=== PATIENT | female | born 1970 | race Caucasian/White ===

== ENCOUNTER 2016-11-12 16:38 | Emergency (ER) | payer BC ==
[~2016-11-12] VITALS: Ht 172.7 cm; Wt 113.5 kg
[2016-11-12 16:40] VITALS: BP 133/72; PULSE 64; RESP 20; TEMP 98.6; O2SAT 97
--- NOTE | 2016-11-12 16:45 | PD ---
Physical Exam Time Seen by Provider: 16:41 Narrative 46 y/o female presents for evaluation for vomiting, headache, dizziness, brief peripheral vision loss. Seen at pcp office and sent here for further evaluation. Had a chiropracor adjustment today and symptoms are worse. vss Seen at triage desk. Awaiting bed placement. [facility] Medical Record Reviewed: Yes Supervised Visit with HASMUKH: Germain Zuleta November 12, 2016 16:45
[2016-11-12] MEDS ORDERED: SODIUM CHLOR 0.9% 1000 ML INJ 1,000 ML IV ONE (17:52)
[2016-11-12] MEDS ORDERED: diphenhydrAMINE HCL 50 MG/ML VIAL IV PUSH ONE (18:00)
[2016-11-12] MEDS ORDERED: MECLIZINE HCL 25 MG TAB PO ONE (18:00)
[2016-11-12] MEDS ORDERED: SODIUM CHLORIDE 0.9% FLUSH 10 ML FLUSH IVF PRN (18:00)
[2016-11-12] MEDS ORDERED: PROCHLORPERAZINE INJ 10 MG/2 ML VIAL IV PUSH ONE (18:00)
--- NOTE | 2016-11-12 18:07 | PD ---
HPI Chief Complaint: Dizziness Time Seen by Provider: 18:00 Travel History International Travel<30 days: No Contact w/Intl Traveler<30days: No Traveled to known affect area: No History of Present Illness HPI 46-year-old female presents to the emergency department for neurologic evaluation. Patient stated that she started with a stomach virus on night around 9 PM. She states she was vomiting and had diarrhea. At that time , she started with a left occipital headache that gradually worsened. She states that her symptoms started to get better around midnight. Her vomiting had ceased. However, her diarrhea persisted into Saturday. She states that she has had a headache since . She states that this morning she went saw her chiropractor and hopes to have her neck readjusted, hoping to relieve her headache. The patient states she has had headaches in the past, but not similar to her current headache. She states that in the past, her chiropractor had resolved her headaches. Her last headache was 6 months ago. She states that her chiropractor adjusted her neck and she began with dizziness as soon as he was done. She states this started at 9:30 this morning. She states the dizziness is worse with movement. It is relieved with lying still and resting. She states the room is spinning around her. She states she feel lightheaded. She denies any syncope. She states that she drove to work after leaving the chiropractor's office and had a beige/black area to her right upper peripheral vision that lasted approximately 10 minutes. It resolved on its own. However, the dizziness continued. She states that she went to see her primary care physician at 2:00 this afternoon who recommended that she goes to an urgent care center for CT of the brain. She went to an urgent care center who then referred her to the emergency department. Patient states she has no chronic medical problems and takes no prescribed medication. She denies any chance of reporting previous tubal ligation. Patient states she has vomited twice today since the dizziness started. She states that her primary care physician thought she may have vertigo. She denies any history of vertigo. Patient denies any visual changes at this time. No blurry vision. No black curtains. PFSH Past Medical History ?: Not Social History Alcohol Use: No Tobacco Use: No Substance Use: No Allergies-Medications (Allergen,Severity, Reaction): Coded Allergies: No Known Allergies (Unverified , 11/12/16) Review of Systems Except as stated in HPI: all other systems reviewed are Neg Physical Exam Narrative GENERAL: Well-nourished, well-developed female patient, afebrile. SKIN: Focused skin assessment warm/dry. HEAD: Normocephalic. Atraumatic. ENT: Mucosa pink and moist. No erythema or exudates. No uvular edema. No uvular , palatal, or tonsillar deviation. Airway patent. Nasal turbinates appear normal without nasal blood, purulent drainage or septal hematoma. Bilateral tympanic membranes are clear without erythema or perforation. EYES: No scleral icterus. No injection or drainage. PERRLA. EOM intact. Peripheral vision intact bilaterally. NECK: Supple, trachea midline. No JVD or lymphadenopathy. CARDIOVASCULAR: Regular rate and rhythm without murmurs, gallops, or rubs. RESPIRATORY: Breath sounds equal bilaterally. No accessory muscle use. Lungs sounds clear to auscultation. GASTROINTESTINAL: Abdomen soft, non-tender, nondistended. MUSCULOSKELETAL: No cyanosis, or edema. Bilateral upper and lower extremity strength 5/5. All extremities are neurovascularly intact. BACK: Nontender without obvious deformity. No CVA tenderness. No midline spinal tenderness. NEUROLOGICAL: Awake and alert. Cranial nerves II through XII intact. Motor and sensory grossly within normal limits. Five out of 5 muscle strength in all muscle groups. Normal speech. Finger to nose is normal bilaterally. Heel-to- salguero is normal bilaterally. Data Data Last Documented VS Vital Signs Date Time Temp Pulse Resp B/P Pulse Ox O2 Delivery O2 Flow Rate FiO2 11/12/16 21:28 18 98 Room Air 11/12/16 20:16 60 141/63 68 138/60 73 146/67 11/12/16 16:40 98.6 Orders Electrocardiogram (11/12/16 17:52) Complete Blood Count With Diff (11/12/16 17:52) Comprehensive Metabolic Panel (11/12/16 17:52) Magnesium (Mg) (11/12/16 17:52) Ckmb (Isoenzyme) Profile (11/12/16 17:52) Troponin I (11/12/16 17:52) Ct Brain W/O Iv Contrast(Rout) (11/12/16 17:52) Ecg Monitoring (11/12/16 17:52) Iv Access Insert/Monitor (11/12/16 17:52) Oximetry (11/12/16 17:52) Sodium Chloride 0.9% Flush (Ns Flush) (11/12/16 18:00) Sodium Chlor 0.9% 1000 Ml Inj (Ns 1000 M (11/12/16 17:52) Orthostatic Vital Signs (11/12/16 17:52) Prochlorperazine Inj (Compazine Inj) (11/12/16 18:00) Diphenhydramine Inj (Benadryl Inj) (11/12/16 18:00) Meclizine (Antivert) (11/12/16 18:00) Mri Brain W/O Contrast (11/12/16 ) Ketorolac Inj (Toradol Inj) (11/12/16 21:45) Potassium Chloride (Kcl) (11/12/16 22:15) Labs Laboratory Tests Test 11/12/16 21:15 White Blood Count 8.2 TH/MM3 Red Blood Count 4.41 MIL/MM3 Hemoglobin 13.2 GM/DL Hematocrit 39.0 % Mean Corpuscular Volume 88.4 FL Mean Corpuscular Hemoglobin 29.8 PG Mean Corpuscular Hemoglobin 33.7 % Concent Red Cell Distribution Width 13.2 % Platelet Count 278 TH/MM3 Mean Platelet Volume 8.7 FL Neutrophils (%) (Auto) 59.5 % Lymphocytes (%) (Auto) 32.7 % Monocytes (%) (Auto) 6.9 % Eosinophils (%) (Auto) 0.5 % Basophils (%) (Auto) 0.4 % Neutrophils # (Auto) 4.9 TH/MM3 Lymphocytes # (Auto) 2.7 TH/MM3 Monocytes # (Auto) 0.6 TH/MM3 Eosinophils # (Auto) 0.0 TH/MM3 Basophils # (Auto) 0.0 TH/MM3 CBC Comment DIFF FINAL Differential Comment Sodium Level 143 MEQ/L Potassium Level 3.1 MEQ/L Chloride Level 106 MEQ/L Carbon Dioxide Level 26.3 MEQ/L Anion Gap 11 MEQ/L Blood Urea Nitrogen 13 MG/DL Creatinine 0.75 MG/DL Estimat Glomerular Filtration 84 ML/MIN Rate Random Glucose 85 MG/DL Calcium Level 8.9 MG/DL Magnesium Level 2.3 MG/DL Total Bilirubin 0.5 MG/DL Aspartate Amino Transf 54 U/L (AST/SGOT) Alanine Aminotransferase 79 U/L (ALT/SGPT) Alkaline Phosphatase 71 U/L Total Creatine Kinase 97 U/L Troponin I LESS THAN 0.02 NG/ML Total Protein 7.6 GM/DL Albumin 3.6 GM/DL MDM Medical Decision Making Medical Screen Exam Complete: Yes Emergency Medical Condition: Yes Medical Record Reviewed: Yes Interpretation(s) Last Impressions Head CT 11/12/16 1752 Signed Impressions: Service Date/Time: Saturday, November 12, 2016 18:38 - CONCLUSION: Negative noncontrast head CT. Enrique Clark MD Brain MRI 11/12/16 0000 Signed Impressions: Service Date/Time: Saturday, November 12, 2016 19:43 - CONCLUSION: Normal noncontrast brain MRI. Enrique Clark MD Differential Diagnosis Vertigo versus intracranial hemorrhage versus CVA versus electrolyte abnormality versus dehydration versus viral syndrome Narrative Course 46-year-old female presents to the emergency department for evaluation of headache and dizziness. Headache started on while dizziness started this morning after seeing chiropractor 9:30 AM. She had a brief loss of right upper peripheral vision that lasted 10 minutes. She denies any visual complaints at this time. EKG, CBC, CMP, Magnesium, CK, Troponin are ordered and pending. CT of the brain and MRI of the brain are ordered and pending. Orthostatic VS are pending. Patient is given 1 L NS IV bolus, compazine 10 mg IV, Benadryl 25 mg IV, meclizine 25 mg PO. EKG shows sinus bradycardia, heart rate 58, no acute ST changes. Visual acuity is 20/15 in the right eye and 20/13 in the left eye. CBC is unremarkable. CMP shows hypokalemia of 3.1, AST 54, ALT 79. Magnesium is 2.3. CK is 97. Troponin is less than 0.02. CT of the brain is normal. MRI of the brain is normal. Orthostatic VS are negative for orthostatic hypotension. Patient is given Toradol 30 mg IV. Patient states dizziness is resolved. She states that her headache is still present, but declines any more pain medication. The patient was discharged home with a prescription for meclizine, tramadol, Zofran. She is encouraged to follow-up with her primary care physician. The patient is instructed to return immediately for any acute worsening of symptoms. She verbalizes agreement and understanding. I discussed the case with my attending physician, Dr. Pulliam, who agrees with plan and disposition. Diagnosis Primary Impression: Vertigo Additional Impression: Cephalgia Qualified Code: R51 - Acute nonintractable headache, unspecified headache type Referrals: Primary Care Physician 2 days Patient Instructions: Acute Headache (ED), General Instructions, Vertigo (ED) Departure Forms: Tests/Procedures, Work Release Enter return to work date: November 15, 2016 Additional Instructions: Take tramadol as directed as needed for headache. Caution this can make you drowsy so do not drive after taking. Take meclizine as directed as needed for dizziness. Take Zofran as directed as needed for nausea/vomiting. Follow-up with your primary care physician in 2 days. Return to the emergency department for any acute worsening of symptoms. Med/Other Pt SpecificInfo: Prescription(s) given Scripts Ondansetron Odt 4 Mg Tab4 Mg SL Q6HR PRN (Nausea/Vomiting) #16 TAB Ref 0 Prov:Lizzie Dang 11/12/16 Meclizine 25 Mg Tab25 Mg PO TID PRN (VERTIGO) #16 TAB Ref 0 Prov:Lizzie Dang 11/12/16 Tramadol 50 Mg Tab50 Mg PO Q8H PRN (PAIN) #16 TAB Ref 0 Prov:Charo Pulliam MD 11/12/16 Disposition: 01 DISCHARGE HOME Condition: Stable Lizzie Dang November 12, 2016 18:06
--- NOTE | 2016-11-12 18:53 | RADRPT ---
EXAM DATE/TIME: 11/12/2016 18:38 [facility] COMPARISON: No previous studies available for comparison. INDICATIONS : Dizziness. RADIATION DOSE: 34.75 CTDIvol (mGy) MEDICAL HISTORY : None SURGICAL HISTORY : None. ENCOUNTER: Initial ACUITY: 1 day PAIN SCALE: 4/10 LOCATION: cranial TECHNIQUE: Multiple contiguous axial images were obtained of the head. Using automated exposure control and adj ustment of the mA and/or kV according to patient size, radiation dose was kept as low as reasonably a chievable to obtain optimal diagnostic quality images. FINDINGS: CEREBRUM: The ventricles are normal for age. No evidence of midline shift, mass lesion, hemorrhage or acute in farction. No extra-axial fluid collections are seen. POSTERIOR FOSSA: The cerebellum and brainstem are intact. The 4th ventricle is midline. The cerebellopontine angle i s unremarkable. EXTRACRANIAL: The visualized portion of the orbits is intact. SKULL: The calvaria is intact. No evidence of skull fracture. CONCLUSION: Negative noncontrast head CT. Enrique Clark MD on November 12, 2016 at 18:51 Board Certified Radiologist. This report was verified electronically.
[2016-11-12 20:16] VITALS: BP_SYST 138; BP_SYST 141; BP_SYST 146; BP_DIAS 60; BP_DIAS 63; BP_DIAS 67
--- NOTE | 2016-11-12 20:21 | RADRPT ---
EXAM DATE/TIME: 11/12/2016 19:43 [facility] COMPARISON: CT BRAIN W/O CONTRAST, November 12, 2016, 18:38. INDICATIONS : Headaches with stomach flu, nausea, and vomiting. MEDICAL HISTORY : None. SURGICAL HISTORY : Tubal ligation. ENCOUNTER: Initial ACUITY: 3 day PAIN SCORE: 5/10 LOCATION: Bilateral cranial TECHNIQUE: Multiplanar, multisequence MRI of the brain was performed without contrast. FINDINGS: CEREBRUM: The ventricles are normal for age. No evidence of midline shift, mass lesion, hemorrhage or acute in farction. No extraaxial fluid collections are seen. The pituitary gland and suprasellar cistern are normal in configuration.WHITE MATTER: No significant signal abnormalities are seen in the white matter. POSTERIOR FOSSA: The cerebellum and brainstem are intact. The 4th ventricle is midline. The cerebellopontine angle is unremarkable. The cerebellar tonsils are normal in position. DIFFUSION IMAGING: No focal areas of restricted diffusion are seen. No evidence of acute infarction. EXTRACRANIAL: The visualized portions of the orbits and paranasal sinuses are unremarkable. CONCLUSION: Normal noncontrast brain MRI. Enrique Clark MD on November 12, 2016 at 20:18 Board Certified Radiologist. This report was verified electronically.
[2016-11-12 20:30] VITALS: BP 136/62; PULSE 58; RESP 19; O2SAT 99
[2016-11-12 21:28] VITALS: RESP 18; O2SAT 98
[2016-11-12 21:33] LABS: AUTOMATED NEUTROPHIL # 4.9 TH/MM3 (1.8-7.7); BASOPHIL % 0.4 % (0.0-2.0); EOSINOPHIL % 0.5 % (0.0-4.0); HEMO FLAGS DIFF FINAL; LYMPH % 32.7 % (9.0-44.0); LYMPHOCYTE # 2.7 TH/MM3 (1.0-4.8); MEAN CELL VOLUME 88.4 FL (80.0-100.0); MEAN CORPUSCULAR HEMOGLOBIN 29.8 PG (27.0-34.0); MEAN CORPUSCULAR HGB CONC 33.7 % (32.0-36.0); MONO % 6.9 % (0.0-8.0); NEUT % 59.5 % (16.0-70.0); PLATELET COUNT 278 TH/MM3 (150-450); RED BLOOD COUNT 4.41 MIL/MM3 (4.00-5.30); RED CELL DISTRIBUTION WIDTH 13.2 % (11.6-17.2); WHITE BLOOD COUNT 8.2 TH/MM3 (4.0-11.0)
[2016-11-12] MEDS ORDERED: KETOROLAC TROMETHAMINE 30 MG/ML (IVP) VIAL IV PUSH ONE (21:45)
[2016-11-12 21:47] LABS: ANION GAP 11 MEQ/L (5-15); AST (GOT) 54 U/L (15-37); BICARBONATE 26.3 MEQ/L (21.0-32.0); BLOOD UREA NITROGEN 13 MG/DL (7-18); CHLORIDE 106 MEQ/L (98-107); GLOMERULAR FILTRATION RATE 84 ML/MIN (>89); MAGNESIUM 2.3 MG/DL (1.5-2.5); POTASSIUM 3.1 MEQ/L (3.5-5.1); SODIUM (NA) 143 MEQ/L (136-145)
[2016-11-12 21:52] LABS: ALKALINE PHOSPHATASE 71 U/L (45-117); ALT (GPT) 79 U/L (10-53); TOTAL BILIRUBIN ADULT 0.5 MG/DL (0.2-1.0)
[2016-11-12 21:53] LABS: CREATINE KINASE 97 U/L (26-192)
[2016-11-12] MEDS ORDERED: POTASSIUM CHLORIDE 20 MEQ CONTROLLED RELEASE TAB PO ONE (22:15)
[2016-11-12] MEDS ORDERED: TRAM50TA PO (22:34)
[2016-11-12] MEDS ORDERED: MECL-62 PO (22:35)
[2016-11-12] MEDS ORDERED: ONDA4TAB7 SL (22:35)
--- NOTE | 2016-11-12 22:37 | EKG ---
Date Performed: 11/12/2016 Time Performed: 18:08:01 PTAGE: 46 years EKG: SINUS BRADYCARDIA WITH SINUS ARRHYTHMIA BORDERLINE ECG NO PREVIOUS TRACING DOCTOR: Moses Venegas Interpretating Date/Time 11/12/2016 22:35:51
== END 2016-11-12 23:02 | disposition home or self-care (01) ==
LOC: NEPC 16:38
DX: R42 Dizziness and giddiness (principal); R19.7 Diarrhea, unspecified; R51 Headache; R94.31 Abnormal electrocardiogram [ECG] [EKG]
CPT/HCPCS: 70450; 70551; 80053; 82550; 83735; 84484; 85025; 93005; 96361; 96374; 96375; 99284; J0780; J1200; J1885; J7030